=== PATIENT | male | born 1985 | race Caucasian/White ===

== ENCOUNTER 2018-01-12 23:58 | Emergency (ER) | payer SELFPAY ==
[~2018-01-12] VITALS: Ht 185.4 cm; Wt 81.8 kg
[2018-01-12 23:59] VITALS: BP 135/87
[2018-01-13] MEDS ORDERED: LIDOCAINE-MPF 2%, 2ML SQ ONE (00:30)
[2018-01-13] MEDS ORDERED: LIDOCAINE-MPF 2%, 2ML ONE (00:37)
[2018-01-13] MEDS ORDERED: BACITRACIN ZINC OINT 500U/GM, 0.9 GM ONE (01:50)
== END 2018-01-13 01:53 | disposition home or self-care (01) ==
LOC: ED 01-13 01:47
DX: S01.111A Laceration without foreign body of right eyelid and periocular area, initial encounter (principal); S01.112A Laceration without foreign body of left eyelid and periocular area, initial encounter; Y04.8XXA Assault by other bodily force, initial encounter; Y93.89 Activity, other specified; Y99.8 Other external cause status; Y92.59 Other trade areas as the place of occurrence of the external cause
CPT/HCPCS: 12052; 70450; 70486; 99285